=== PATIENT | male | born 1955 | race Caucasian/White ===

== ENCOUNTER 2016-08-05 15:51 | Emergency (ER) | payer OTHER ==
[~2016-08-05 15:51] MED LIST: CARV12.5 PO; CLIN1CAP5 PO; CLON-481 PO; GLUCTAB PO; LANTUS2P SC; LASI80TA PO; PERC5TAB12 PO; ST J81CH PO; ULTR50TA PO
== END 2016-08-05 17:00 | disposition left against medical advice (07) ==
LOC: NEDAMB 15:51
DX: R07.9 Chest pain, unspecified (principal)
CPT/HCPCS: 99281